=== PATIENT | female | born 1995 | race Caucasian/White ===

== ENCOUNTER 2017-01-09 17:59 | Emergency (ER) | payer BC ==
[~2017-01-09] VITALS: Ht 167.6 cm; Wt 65.0 kg
[2017-01-09 18:04] VITALS: BP 128/70; PULSE 107; RESP 18; TEMP 98.3; O2SAT 100
--- NOTE | 2017-01-09 18:26 | PD ---
HPI Chief Complaint: Alcohol/Drug Intoxication Time Seen by Provider: 18:25 Travel History International Travel<30 days: No Contact w/Intl Traveler<30days: No Traveled to known affect area: No History of Present Illness HPI 21-year-old female brought to emergency Department via EMS with acute alcohol intoxication. Patient admits to drinking "a lot" of EtOH today. She has no complaints of headache, nausea, vomiting, or other symptoms. Patient is here from [place] on spring. She has no known drug allergies. [facility] Past Medical History Medical History: Unable to Obtain ?: Unknown Social History Alcohol Use: Yes Tobacco Use: No Substance Use: No Allergies-Medications (Allergen,Severity, Reaction): Coded Allergies: No Known Allergies (Unverified , 01/09/17) Review of Systems ROS Limitations: Intoxication General / Constitutional: No: Fever Eyes: No: Visual changes HENT: No: Headaches Cardiovascular: No: Chest Pain or Discomfort Respiratory: No: Shortness of Breath Gastrointestinal: No: Abdominal Pain Genitourinary: No: Dysuria Musculoskeletal: No: Pain Skin: No Rash Neurologic: No: Weakness Psychiatric: No: Depression Endocrine: No: Polydipsia Hematologic/Lymphatic: No: Easy Bruising Physical Exam Exam Limitations: Intoxication Narrative GENERAL: Patient is always intoxicated but in no acute distress. Arousable and answers questions appropriately. SKIN: Warm and dry. Normal color. Normal turgor. HEAD: Atraumatic. Normocephalic. EYES: Pupils equal and round. No scleral icterus. No injection or drainage. ENT: No nasal bleeding or discharge. Mucous membranes pink and moist. Pharynx is clear. Her weight is patent. NECK: Trachea midline. Supple and nontender. CARDIOVASCULAR: Regular rate and rhythm. RESPIRATORY: No accessory muscle use. Clear to auscultation. Breath sounds equal bilaterally. MUSCULOSKELETAL: Extremities without clubbing, cyanosis, or edema. No obvious deformities. NEUROLOGICAL: Awake and alert. No obvious cranial nerve deficits. Motor grossly within normal limits. Five out of 5 muscle strength in the arms and legs. Normal speech. PSYCHIATRIC: Patient intoxicated and arousable. Data Data Last Documented VS Vital Signs Date Time Temp Pulse Resp B/P Pulse Ox O2 Delivery O2 Flow Rate FiO2 01/09/17 18:04 98.3 107 18 128/70 100 Room Air Orders Complete Blood Count With Diff (01/09/17 18:30) Comprehensive Metabolic Panel (01/09/17 18:30) Urinalysis - C+S If Indicated (01/09/17 18:30) Iv Access Insert/Monitor (01/09/17 18:30) Ecg Monitoring (01/09/17 18:30) Oximetry (01/09/17 18:30) Sodium Chloride 0.9% Flush (Ns Flush) (01/09/17 18:30) Sodium Chlor 0.9% 1000 Ml Inj (Ns 1000 M (01/09/17 18:30) Drug Screen, Random Urine (01/09/17 18:30) Alcohol (Ethanol) (01/09/17 18:30) Labs Laboratory Tests Test 01/09/17 18:55 White Blood Count 6.0 TH/MM3 Red Blood Count 4.95 MIL/MM3 Hemoglobin 13.7 GM/DL Hematocrit 41.8 % Mean Corpuscular Volume 84.4 FL Mean Corpuscular Hemoglobin 27.7 PG Mean Corpuscular Hemoglobin 32.8 % Concent Red Cell Distribution Width 14.2 % Platelet Count 211 TH/MM3 Mean Platelet Volume 9.8 FL Neutrophils (%) (Auto) 73.6 % Lymphocytes (%) (Auto) 17.4 % Monocytes (%) (Auto) 5.9 % Eosinophils (%) (Auto) 2.3 % Basophils (%) (Auto) 0.8 % Neutrophils # (Auto) 4.4 TH/MM3 Lymphocytes # (Auto) 1.0 TH/MM3 Monocytes # (Auto) 0.4 TH/MM3 Eosinophils # (Auto) 0.1 TH/MM3 Basophils # (Auto) 0.0 TH/MM3 CBC Comment DIFF FINAL Differential Comment MDM Medical Decision Making Medical Screen Exam Complete: Yes Emergency Medical Condition: Yes Differential Diagnosis Acute alcohol intoxication. Possible polysubstance abuse. Altered mental status. Narrative Course Patient is felt to be medically stable at time of exam. Labs ordered including CBC, CMP, urinalysis, and urine . Patient is given 1000 mL of normal saline bolus. 1945 hrs. a shouldn't is alert, oriented, and able to ambulate without difficulty. Patient is felt stable for discharge. Patient has a ride. Diagnosis Primary Impression: Acute alcohol intoxication Qualified Code: F10.120 - Acute alcohol intoxication, uncomplicated Referrals: Primary Care Physician Patient Instructions: General Instructions Additional Instructions: Do not drink alcohol. Rest and push fluids, and stay with friends who are not drinking. Follow up if symptoms warrant. Med/Other Pt SpecificInfo: No Meds Exist/No RX given Disposition: 01 DISCHARGE HOME Condition: Jeremiah Cheek Jan 09, 2017 18:26
[2017-01-09] MEDS ORDERED: SODIUM CHLORIDE 0.9% FLUSH 5 ML FLUSH IVF PRN (18:30)
[2017-01-09] MEDS ORDERED: SODIUM CHLOR 0.9% 1000 ML INJ 1,000 ML IV ONE (18:30)
[2017-01-09 19:18] LABS: AUTOMATED NEUTROPHIL # 4.4 TH/MM3 (1.8-7.7); BASOPHIL % 0.8 % (0.0-2.0); EOSINOPHIL # 0.1 TH/MM3 (0-0.4); EOSINOPHIL % 2.3 % (0.0-4.0); HEMATOCRIT 41.8 % (35.0-46.0); HEMO FLAGS DIFF FINAL; LYMPH % 17.4 % (9.0-44.0); MEAN CELL VOLUME 84.4 FL (80.0-100.0); MEAN CORPUSCULAR HEMOGLOBIN 27.7 PG (27.0-34.0); MEAN CORPUSCULAR HGB CONC 32.8 % (32.0-36.0); MONO % 5.9 % (0.0-8.0); NEUT % 73.6 % (16.0-70.0); PLATELET COUNT 211 TH/MM3 (150-450); RED BLOOD COUNT 4.95 MIL/MM3 (4.00-5.30); RED CELL DISTRIBUTION WIDTH 14.2 % (11.6-17.2)
[2017-01-09 19:44] LABS: ANION GAP 10 MEQ/L (5-15)
[2017-01-09 19:49] LABS: ALKALINE PHOSPHATASE 58 U/L (45-117); ALT (GPT) 26 U/L (9-42); AST (GOT) 19 U/L (16-38); BICARBONATE 20.6 MEQ/L (21.0-32.0); BLOOD UREA NITROGEN 10 MG/DL (7-18); CHLORIDE 113 MEQ/L (98-107); GLOMERULAR FILTRATION RATE 73 ML/MIN (>89); POTASSIUM 3.8 MEQ/L (3.5-5.1); SODIUM (NA) 144 MEQ/L (136-145); TOTAL BILIRUBIN ADULT 0.2 MG/DL (0.2-1.0)
[2017-01-09 21:08] VITALS: BP 118/70; PULSE 78; RESP 18; O2SAT 100
== END 2017-01-09 21:10 | disposition home or self-care (01) ==
LOC: NEPE 17:59
DX: F10.120 Alcohol abuse with intoxication, uncomplicated (principal)
CPT/HCPCS: 80053; 80307; 85025; 99284; J7030